=== PATIENT | male | born 1970 | race Caucasian/White ===

== ENCOUNTER 2017-02-26 00:02 | Emergency (ER) | payer MEDICAID ==
[2017-02-26] MEDS ORDERED: Sodium Chloride 0.9% 1,000 ML IV ONE (00:30)
--- NOTE | 2017-02-26 00:37 | ED Physician Chart ---
ED Chief Complaint/HPI - Patient Information Date Seen:: 02/26/17 Time Seen:: 00:00 Chief Complaint:: altered level of consciousness History of Present Illness:: Patient was at home with a group of friends. He was found by his with altered mental status. She does not know if he was drinking alcohol or using drugs. Patient has in the past used alcohol but is unaware if patient has ever used drugs before. I first encountered the patient lying supine and poorly responsive near the entrance to the emergency department. Historian:: Family Member Review:: Nurse's Note Reviewed ED Review of Systems - Review of Systems General/Constitutional: No fever, No chills Skin: No skin lesions Head: No headache Eyes: No loss of vision ENT: No earache Neck: No neck pain, No swelling Cardio Vascular: No chest pain, No palpitations Pulmonary: No SOB GI: No nausea, No vomiting G/U: No dysuria Musculoskeletal: No bone or joint pain Endocrine: No polyuria, No polydipsia Psychiatric: No prior psych history Hematopoietic: No bruising, No lymphadenopathy Allergic/Immuno: No urticaria Neurological: No syncope, No focal symptoms, Weakness, Confusion ED Past Medical History - Past Medical History Past Medical History: Asthma/COPD Family History: None Social History: Smoker, Alcohol Surgical History: None, CABG ED Physical Exam - Physical Examination General/Constitutional: Well-developed, well-nourished Other Gen/Cons comments:: Nonverbal; making gross movements especially of his legs on the gurney; restless ; no swelling, tenderness or deformity of the scalp Head: Atraumatic Eyes: Lids, conjuctiva normal, PERRL Other Eyes comments:: Pupils about 2 1/2 millimeters ENMT: External ears, nose nl Neck: No nuchal rigidity Respiratory: Nl effort/Exclusion, Clear to Auscultation, No Wheeze/Rhonchi/Rales Cardio Vascular: RRR GI: No tenderness/rebounding/guarding : No CVA tenderness Extremities: No tenderness or effusion Neuro/Psych: No focal deficits Misc: Normal back Other Misc comments:: Patient made strong non focal response to an unpleasant stimulus ED Labs/Radiology/EKG Results - Lab Results Results: Laboratory Tests 02/26/17 00:20 POC Glucose 111 H Laboratory Results - last 24 hr 02/26/17 02/26/17 02/26/17 00:20 00:30 00:30 WBC 11.0 H RBC 5.09 Hgb 16.1 Hct 47.1 MCV 92.4 MCH 31.6 H MCHC Differential 34.2 RDW 12.4 Plt Count 219 MPV 9.6 Neutrophils % 38.4 L Lymphocytes % 49.1 Monocytes % 7.8 Eosinophils % 4.4 Basophils % 0.3 Sodium 142 Potassium 3.1 L Chloride 108 H Carbon Dioxide 25.3 Anion Gap 11.8 BUN 13 Creatinine 1.0 Est GFR ( Amer) > 60.0 Est GFR (Non-Af Amer) > 60.0 BUN/Creatinine Ratio 13.0 Glucose 121 H POC Glucose 111 H Calcium 9.0 Magnesium 2.0 Creatine Kinase Urine Opiates Screen Urine Methadone Screen Ur Barbiturates Screen Ur Tricyclics Screen Ur Phencyclidine Scrn Amphetamines Screen U Methamphetamines Scrn U Benzodiazepines Scrn U Cocaine Metab Screen U Cannabinoids Screen Ethyl Alcohol < 10 02/26/17 02/26/17 00:30 02:00 WBC RBC Hgb Hct MCV MCH MCHC Differential RDW Plt Count MPV Neutrophils % Lymphocytes % Monocytes % Eosinophils % Basophils % Sodium Potassium Chloride Carbon Dioxide Anion Gap BUN Creatinine Est GFR ( Amer) Est GFR (Non-Af Amer) BUN/Creatinine Ratio Glucose POC Glucose Calcium Magnesium Creatine Kinase 79 Urine Opiates Screen NEGATIVE Urine Methadone Screen NEGATIVE Ur Barbiturates Screen NEGATIVE Ur Tricyclics Screen NEGATIVE Ur Phencyclidine Scrn NEGATIVE Amphetamines Screen NEGATIVE U Methamphetamines Scrn NEGATIVE U Benzodiazepines Scrn NEGATIVE U Cocaine Metab Screen NEGATIVE U Cannabinoids Screen POSITIVE H Ethyl Alcohol ED Assessment - Assessment General Assessment: At 0350 patient able to speak normally and ambulate normally. ED Septic Shock - . Is Septic Shock (SBP<90, OR Lactate>4 mmol\L) present?: No ED Reassessment (Disposition) - Reassessment Reassessment:: Etiology of patient's altered mental status is not certain but since patient returned to normal mental status he appears okay for discharge. The patient's restlessness at time of admission did not appear to be seizure activity. Reassessment Condition:: Improved - Diagnosis Diagnosis:: Altered mental status - Aftercare/Follow up Instructions Aftercare/Follow-Up Instructions:: Counseled pt regarding lab results/diagnosis & need follow up - Patient Disposition Discharge/Transfer:: Home Condition at Disposition:: Stable, Improved
[2017-02-26 00:46] LABS: % BASOPHILS 0.3 % (0.0-2.0); % EOSINOPHILS 4.4 % (0.0-5.0); % LYMPHOCYTES 49.1 % (20.0-50.0); % MONOCYTES 7.8 % (2.0-10.0); % NEUTROPHILS 38.4 % (40.0-80.0); HEMATOCRIT 47.1 % (41.0-60); HEMOGLOBIN 16.1 gm/dL (12-16); MEAN CELL VOLUME 92.4 fl (80-99); MEAN CORPUSCULAR HEMOGLOBIN 31.6 pg (26.0-30.0); MEAN CORPUSCULAR HGB CONC 34.2 pg (28.0-36.0); MEAN PLATELET VOLUME 9.6 fl; NEUTROPHILE ABSOLUTE 4.2 Th/cmm (1.8-8.0); PLATELET COUNT 219 Th/cmm (150-400); RED BLOOD COUNT 5.09 Mil/cmm (4.30-5.70); RED CELL DISTRIBUTION WIDTH 12.4 % (11.5-20.0)
[2017-02-26 01:08] LABS: ANION GAP 11.8 (7.0-16.0); BUN - UREA NITROGEN 13 mg/dL (7-25); CARBON DIOXIDE 25.3 mEq/L (21.0-31.0); CHLORIDE 108 mEq/L (98-107); GLUCOSE 121 mg/dL (70-105); POTASSIUM SERUM 3.1 mEq/L (3.5-5.1); SODIUM SERUM 142 mEq/L (136-145)
[2017-02-26 02:26] LABS: AMPHETAMINE URINE NEGATIVE (NEGATIVE); BARBITURATES URINE NEGATIVE (NEGATIVE); METHADONE URINE NEGATIVE (NEGATIVE)
== END 2017-02-26 04:18 | disposition home or self-care (01) ==
LOC: ER 00:02
DX: R41.82 Altered mental status, unspecified (principal); J45.909 Unspecified asthma, uncomplicated; J44.1 Chronic obstructive pulmonary disease with (acute) exacerbation; F17.200 Nicotine dependence, unspecified, uncomplicated
CPT/HCPCS: 36415-UA; 80048-TC; 80307; 80320-TC; 82550-TC; 82948-90; 83735-TC; 85025-TC; 96374; J1200; J7030; Z7502